=== PATIENT | female | born 1985 | race Caucasian/White ===

== ENCOUNTER 2025-01-30 14:17 | Emergency (ER) | payer MEDICAID | END 2025-01-30 17:19 | disposition home or self-care (01) | LOC: JP.ED 14:17 | DX: H66.92 Otitis media, unspecified, left ear (principal); H60.92 Unspecified otitis externa, left ear; R42 Dizziness and giddiness; Z90.49 Acquired absence of other specified parts of digestive tract; Z88.0 Allergy status to penicillin; Z88.1 Allergy status to other antibiotic agents; Z88.5 Allergy status to narcotic agent; Z88.6 Allergy status to analgesic agent; Z79.899 Other long term (current) drug therapy | CPT/HCPCS: 93005; 99284 ==